=== PATIENT | male | born 1955 | race Caucasian/White ===

== ENCOUNTER 2017-03-20 06:28 | Day surgery (SDC) | payer BC ==
[~2017-03-20] VITALS: Ht 177.8 cm; Wt 83.9 kg
[~2017-03-20 06:28] MED LIST: BEE POLLEN550 MG PO; BENTYL10 MG PO; CHANTIX1 MG PO; FISH OIL 1,0001 EAC2 NG; L-LYSINE500 M1 PO; LOVASTATIN20 MG PO; METFORMIN HCL500 MG PO; SAW PALMETTO160 MG PO; ZOFRAN ODT4 MG PO
--- NOTE | 2017-03-20 08:05 | NUR ---
03/20/17 0805 Kathie Dejesus PT ARRIVED TO PACU ASLEEP ON LEFT SDIE, ON 2L NC MAINTAINING OWN AIRWAY. 0800- PT RESPONDED TO STIMULI.
--- NOTE | 2017-03-21 12:48 | OR ---
[facility] [address], [place] [address] Signed DATE OF PROCEDURE: 03/20/17 PREOPERATIVE DIAGNOSES Right lower quadrant abdominal pain. Constipation and diarrhea. Nausea. POSTOPERATIVE DIAGNOSES [id number] sigmoid diverticulosis. 5 mm polyp at 18 cm (rectosigmoid junction). Moderate internal hemorrhoids. PROCEDURE: Colonoscopy without biopsy. ESTIMATED BLOOD LOSS: None. INDICATIONS Donnell is a 61-year-old gentleman, asked to see me for a colonoscopy. He had been having some right lower quadrant abdominal pain with constipation, diarrhea and nausea. He said it is much better now. He had an open gallbladder back in the 1980s. He has never had a previous colonoscopy. There is no family history of colon cancer or polyps. I gave Donnell a booklet in the office on colonoscopy and we looked at the book in [place]. He understands the nature of colonoscopy along with the risks including, but not limited to gas bloating, crampy abdominal pain, bleeding, perforation requiring surgery, and missed diagnosis. He also understands the need for IV conscious sedation. He h ad expressed understanding and wished to proceed. PROCEDURE NOTE Donnell was taken into endoscopy suite, placed in the left lateral decubitus position. He was given 5 mg of Versed and 150 mcg of Fentanyl to cover the case. A digital rectal exam was performed and at his age, he does have some fullness and induration to his prostate gland. The adult colonoscope was introduced and advanced all around into the cecum under direct visualization of camera without difficulty. His prep was good. The scope was then sl o wly withdrawn. We did find a sessile-appearing polyp at 18 cm. It was easily removed with a hot biopsy forceps. Next to it was a tiny little polyp, which we also removed with hot biopsy forceps. We could also see that in the sigmoid colon, he has moderate diverticulosis. They are moderate in size, moderate in number and scattered about. Upon retroflexion of the scope in the rectum, we did see some moderate internal hemorrhoid columns as well. After this, the gas was suctioned out. The colonoscope removed. Donnell tolerated the procedure quite well. RECOMMENDATIONS Electronically Signed By: FREDI WATSON MD 03/21/17 1248 PATIENT NAME: DONNELL NOBLE OPERATIVE REPORT DATE OF : 57 PHYSICIAN: FREDI WATSON MD REPORT #: [id number] REPORT IS CONFIDENTIAL AND NOT TO BE RELEASED WITHOUT AUTHORIZATION [address] [address] Signed I will see Donnell back in my office in 7-14 days to review his results. MD DEEPAK Caputo/Nelsonl /[id number] cc: GAGE Mancini Electronically Signed By: FREDI WATSON MD 03/21/17 1248 PATIENT NAME: DONNELL NOBLE OPERATIVE REPORT DATE OF : 57 PHYSICIAN: FREDI WATSON MD REPORT #: [id number] REPORT IS CONFIDENTIAL AND NOT TO BE RELEASED WITHOUT AUTHORIZATION
== END 2017-03-20 08:36 | disposition home or self-care (01) ==
LOC: OPS 06:28 → DS 06:28 → OPS 06:45
PROVIDERS: Colon & Rectal Surgery
PROC: 0DBE8ZX Excision of Large Intestine, Via Natural or Artificial Opening Endoscopic, Diagnostic (ICD-10-PCS; principal; 2017-03-20 06:45)
DX: K63.5 Polyp of colon (principal); K64.8 Other hemorrhoids; K57.30 Diverticulosis of large intestine without perforation or abscess without bleeding; E11.9 Type 2 diabetes mellitus without complications; E78.5 Hyperlipidemia, unspecified; Z90.49 Acquired absence of other specified parts of digestive tract; F17.210 Nicotine dependence, cigarettes, uncomplicated; Z88.0 Allergy status to penicillin; Z79.899 Other long term (current) drug therapy
CPT/HCPCS: 99152; 99153; J2250; J3010; J7120